=== PATIENT | female | born 1945 | race Caucasian/White ===

== ENCOUNTER 2017-06-21 12:24 | Day surgery (SDC) | payer MEDICARE ==
[~2017-06-21 12:24] MED LIST: Buffered Lidocaine 0.9% SYRIN* 5 ML/SYR SYRINGE INTRADERM ONE; Dexamethasone IV* 4 MG/ML 1 ML (4 MG) IV SLOW PU ONE; Famotidine IV* 10 MG/ML 2 ML (20 mg) IV ONE
[2017-06-21] MEDS ORDERED: Famotidine IV* 10 MG/ML 2 ML (20 mg) ONE (12:55)
[2017-06-21] MEDS ORDERED: Dexamethasone IV* 4 MG/ML 1 ML (4 MG) ONE ×2 (12:55→14:19)
[2017-06-21] MEDS ORDERED: Midazolam* 1 MG/ML 5 ML VIAL (5 MG) ONE (13:09)
[2017-06-21] MEDS ORDERED: fentaNYL* 50 MCG/ML 5 ML VIAL (250 MCG VIAL) ONE (13:09)
[2017-06-21] MEDS ORDERED: Atracurium* 10 MG/ML 10 ML VIAL ONE (13:09)
[2017-06-21] MEDS ORDERED: Ondansetron INJ* 2 MG/ML VIAL ONE (14:19)
[2017-06-21] MEDS ORDERED: EPHEDrine (Pressors)* 50 MG/ML VIAL ONE (14:19)
[2017-06-21] MEDS ORDERED: Propofol* 10 MG/ML 20 ML BTL IV PUSH ONE (14:19)
[2017-06-21] MEDS ORDERED: Glycopyrrolate IV* 0.2 MG/ML 1 ML VIAL ONE (14:19)
[2017-06-21] MEDS ORDERED: Morphine INJ* 2 MG/ML 1 ML CARPUJECT IV PRN (14:23)
[2017-06-21] MEDS ORDERED: DiMENhydriNATE IV* 50 MG/ML VIAL IV PUSH PRN (14:23)
[2017-06-21] MEDS ORDERED: PROCHLORPERAZINE INJ 5 MG/ML 2 ML VIAL IV PRN (14:23)
[2017-06-21] MEDS ORDERED: Naloxone* 0.4 MG/ML 1 ML VIAL IV PRN (14:23)
[2017-06-21] MEDS ORDERED: Labetalol IV* 5 MG/ML 20 ML VIAL ONE (14:23)
[2017-06-21 17:05] VITALS: BP 110/48
--- NOTE | 2017-06-22 12:34 | PRO ---
DATE: 06/21/17 [facility] REFERRING PHYSICIAN: Celia Dupree MD * PROCEDURE: Upper gastrointestinal endoscopy, CLOtest and biopsy greater curvature; colonoscopy and ileoscopy and cold snare polypectomy, transverse colon sessile polyps with prophylactic hemostatic clip placement of distal polyp. INDICATION: This 71-year-old woman has longstanding dyspepsia and is being screened for Muller's. She has abdominal pain at various times that is difficult to characterize as an additional reason. She had a colon screening via FIT test, which was positive. She has not seen any blood in the stool. She has had prior colon polyps. ENDOSCOPIST: Dr. Qureshi ANESTHESIA: Manny Meek MD FINDINGS: She is a substantially overweight older woman in no overt distress. EGD: Larynx - not seen. Esophagus - easily entered and mucosa is normal in the upper, mid and lower esophagus with the EG junction at 37, generally snug. Stomach - generally normal mucosa in the cardia, fundus, body and antrum. A CLOtest was taken of mid greater curvature and 2 biopsies taken from some mild patchy erythema. No erosions or deformity was seen. There was no ulcer. Duodenum - the pylorus, bulb, and second through fourth portions appear normal. COLONOSCOPY: Initial views show a fair prep with a fair amount of feculent debris. The adult colonoscope advances into the sigmoid where there is 1-2+ diverticulosis, though no sign of fixation or erythema or purulence. The scope advances through a very floppy colon. Standard techniques are helpful and a nursing hand check pressing straight up on the umbilicus helped get around the hepatic flexure. The cecum had to be watched extensively, but it was possible to do so. The cecum, ileocecal valve and 20 cm terminal ileum were normal. Right colonic retroflexion was not possible. On slow withdrawal, polyps were seen in the proximal to mid transverse, tented up with a cold snare, resected and suction retrieved. About 5 cm further downstream, there was a second slightly smaller 5 mm lesion appearing somewhat erythematous, tented up, resected and suction retrieved. There was some enhanced bleeding for about 5 minutes which stopped. As this seemed a little unusual and given the superficial nature of this lesion, a clip was placed prophylactically deploying its jaws parallel to the wall and placement appeared quite satisfactory. Further withdrawal views showed no other polyps. Rectal retroflexion was not possible given complete placidity of the anal sphincter. [id number]/[facility] #: [id number] MTDD
== END 2017-06-21 17:07 | disposition home or self-care (01) ==
LOC: OR 12:24
PROVIDERS: ATTEND Internal Medicine Gastroenterology
DX: R10.13 Epigastric pain (principal); K63.5 Polyp of colon; K62.5 Hemorrhage of anus and rectum; K59.00 Constipation, unspecified; D12.3 Benign neoplasm of transverse colon; K57.31 Diverticulosis of large intestine without perforation or abscess with bleeding; Z86.010 Personal history of colon polyps; K21.9 Gastro-esophageal reflux disease without esophagitis; I10 Essential (primary) hypertension; E78.00 Pure hypercholesterolemia, unspecified; Z68.36 Body mass index [BMI] 36.0-36.9, adult; E66.01 Morbid (severe) obesity due to excess calories; Z80.0 Family history of malignant neoplasm of digestive organs
CPT/HCPCS: 87077; 88305; J1100; J2250; J2405; J2704; J3010

== ENCOUNTER 2018-08-20 15:51 | Emergency (ER) | payer MEDICARE, OTHER ==
[2018-08-20] MEDS ORDERED: Cephalexin CAP* 500 MG PO ONE (19:20)
--- NOTE | 2018-08-20 19:22 | ED ---
Lower Extremity - HPI Summary HPI Summary: Patient complains of left anterior napier hematoma from mechanical fall 1 week ago with increase in redness and ecchymosis 2 days. Denies increase in pain. Patient was originally evaluated for follow-up with primary care with negative x -rays. Denies new trauma, fever, cough, sore throat, CP, SOB, N/V/D, abdominal pain, change in urine, change in BM. Denies history of blood clots. No anti- coag. Nonsmoker. - History of Current Complaint Chief Complaint: EDExtremityLower Stated Complaint: LEG INJURY PER PT Time Seen by Provider: 08/20/18 16:49 Hx Obtained From: Patient Mechanism Of Injury: Unknown Onset of Pain: Days Severity Currently: None Pain Intensity: 0 Pain Scale Used: 0-10 Numeric Associated Signs And Symptoms: Positive: Redness, Bruising Able to Bear Weight: Yes - Allergies/Home Medications Allergies/Adverse Reactions: Allergies Allergy/AdvReac Type Severity Reaction Status Date / Time Sulfa (Sulfonamide Allergy Swelling Verified 08/20/18 16:00 Antibiotics) Of Face,Lips,& Throat PMH/Surg Hx/FS Hx/Imm Hx Endocrine/Hematology History: Reports: Hx Diabetes Cardiovascular History: Reports: Hx Hypercholesterolemia, Hx Hypertension, Other Cardiovascular Problems/Disorders - HIGH CHOLESTEROL GI History: Reports: Hx Gastrointestinal Bleed, Other GI Disorders - UMBILICIAL HERNIA Denies: Hx Hiatal Hernia Musculoskeletal History: Reports: Hx Arthritis - OSTEO, Hx Back Problems, Hx Osteoporosis Sensory History: Denies: Hx Contacts or Glasses, Hx Hearing Aid Opthamlomology History: Denies: Hx Contacts or Glasses EENT History: Denies: Hx Deafness Neurological History: Denies: Hx Dementia Psychiatric History: Reports: Hx Anxiety - Surgical History Surgery Procedure, Year, and Place: partial hysterectomy, gallbladder, abdominal hernia repair, hernia repair 02/2011. [facility] Hx Anesthesia Reactions: No Infectious Disease History: No Infectious Disease History: Denies: Traveled Outside the [place] in Last 30 Days - Social History Alcohol Use: Rare Alcohol Amount: 1-2 glasses beer or wine Substance Use Type: Reports: None Substance Use Comment - Amount & Last Used: mser Smoking Status (MU): Never Smoked Tobacco Have You Smoked in the Last Year: No Review of Systems Constitutional: Negative Eyes: Negative ENT: Negative Cardiovascular: Negative Respiratory: Negative Gastrointestinal: Negative Genitourinary: Negative Musculoskeletal: Negative Skin: Other Neurological: Negative Psychological: Normal All Other Systems Reviewed And Are Negative: Yes Physical Exam - Summary Physical Exam Summary: Mild localized erythema surrounding healing hematoma on left anterior napier. Ecchymosis around left foot and left ankle that appears to be days old. PMS intact. No pain with palpation except directly over hematoma. Full range of motion of foot, ankle, knee. Nontender. Triage Information Reviewed: Yes Vital Signs On Initial Exam: Initial Vitals Temp Pulse Resp BP Pulse Ox 98.1 F 73 16 136/93 99 08/20/18 15:53 08/20/18 15:53 08/20/18 15:53 08/20/18 15:53 08/20/18 15:53 Vital Signs Reviewed: Yes Appearance: Positive: Well-Appearing Skin: Positive: Warm Head/Face: Positive: Normal Head/Face Inspection Eyes: Positive: Normal Neck: Positive: Supple Respiratory/Lung Sounds: Positive: Clear to Auscultation Cardiovascular: Positive: Normal Abdomen Description: Positive: Nontender Musculoskeletal: Positive: Normal Neurological: Positive: Normal Psychiatric: Positive: Normal AVPU Assessment: Alert - Jorje Coma Scale Best Eye Response: 4 - Spontaneous Best Motor Response: 6 - Obeys Commands Best Verbal Response: 5 - Oriented Coma Scale Total: 15 Diagnostics - Vital Signs Vital Signs Temp Pulse Resp BP Pulse Ox 08/20/18 15:53 98.1 F 73 16 136/93 99 - Laboratory Lab Statement: Any lab studies that have been ordered have been reviewed, and results considered in the medical decision making process. Lower Extremity Course/Dx - Course Course Of Treatment: Patient complains of left anterior napier hematoma from mechanical fall 1 week ago with increase in redness and ecchymosis 2 days. Denies increase in pain. Patient was originally evaluated for follow-up with primary care with negative x-rays. Denies new trauma, fever, cough, sore throat , CP, SOB, N/V/D, abdominal pain, change in urine, change in BM. Denies history of blood clots. No anti-coag. Nonsmoker. Physical exam:Mild localized erythema surrounding healing hematoma on left anterior napier. Ecchymosis around left foot and left ankle that appears to be days old. PMS intact. No pain with palpation except directly over hematoma. Full range of motion of foot, ankle, knee. Nontender. Vital signs within normal limits. Ultrasound negative for DVT. Patient given Rx for Keflex due to new onset erythema and warmth. - Diagnoses Provider Diagnoses: Hematoma, Cellulitis Discharge - Sign-Out/Discharge Documenting (check all that apply): Patient Departure Patient Received Moderate/Deep Sedation with Procedure: No - Discharge Plan Condition: Stable Disposition: HOME Prescriptions: Cephalexin CAP* [Keflex CAP*] 500 mg PO TID 7 Days #21 cap Patient Education Materials: Cellulitis (ED), Hematoma (ED) Referrals: Celia Mejia MD [Primary Care Provider] - Additional Instructions: Take antibiotics as directed. Return to the ED for any new or worsening symptoms. - Billing Disposition and Condition Condition: STABLE Disposition: Home
[2018-08-20 19:44] VITALS: BP 126/58
== END 2018-08-20 19:43 | disposition home or self-care (01) ==
LOC: ED 15:51
DX: S80.12XA Contusion of left lower leg, initial encounter (principal); W01.0XXA Fall on same level from slipping, tripping and stumbling without subsequent striking against object, initial encounter; L03.116 Cellulitis of left lower limb; M71.22 Synovial cyst of popliteal space [Baker], left knee; I10 Essential (primary) hypertension; E11.9 Type 2 diabetes mellitus without complications; E78.00 Pure hypercholesterolemia, unspecified; M19.90 Unspecified osteoarthritis, unspecified site; M81.0 Age-related osteoporosis without current pathological fracture; M79.662 Pain in left lower leg; F41.9 Anxiety disorder, unspecified; Z88.2 Allergy status to sulfonamides
CPT/HCPCS: 99282; A9270-GY